=== PATIENT | female | born 1945 | race Caucasian/White ===

== ENCOUNTER 2021-03-10 16:16 | Observation (INO) ==
[2021-03-10] MEDS ORDERED: ACETAMINOPHEN 325 MG TABLET PO PRN (16:19)
[2021-03-10] MEDS: SODIUM CHLORIDE 0.9% 1,000 ML IV SCH (20:18)
[2021-03-10] MEDS: ONDANSETRON 4 MG/2 ML VIAL IV PRN (20:28)
[2021-03-10] MEDS: ENOXAPARIN 30 MG/0.3 ML SYRINGE SUBCUT SCH (21:50)
[2021-03-10] MEDS: DOCUSATE SODIUM 100 MG CAPSULE PO SCH (21:50)
[2021-03-10] MEDS ORDERED: hydrALAZINE 20 MG/1 ML VIAL IM PRN (22:20)
[2021-03-10] MEDS ORDERED: NITROGLYCERIN SL 0.4 MG TABLET SL PRN (22:21)
[2021-03-10] MEDS ORDERED: NITROGLYCERIN 2% OINT 1 INCH/GM PACK TOP ONE (22:21)
[2021-03-10] MEDS: ZALEPLON 5 MG CAPSULE PO SCH (22:38)
[2021-03-10] MEDS ORDERED: hydrALAZINE 20 MG/1 ML VIAL IV PRN (22:40)
[2021-03-11] MEDS: SODIUM CHLORIDE 0.9% 1,000 ML IV SCH ×4 (00:34→20:16)
[2021-03-11 07:14] LABS: Basophils % 0.9 % (0.0-0.8); Eosinophils # 0.2 10*3/uL (0.0-0.87); Eosinophils % 4.6 % (0.00-10.9); Hematocrit 31.2 VOL% (35.7-47.0); Hemoglobin 10.4 GM/DL (12.0-16.0); Immature Granulocytes % 0.4 %; Immature Granulocytes Absolute 0.02 #; Lymphocytes # 1.3 10*3/uL (1.4-4.0); Lymphocytes % 27.8 % (21.3-54.2); Mean Corpuscular HGB Conc 33.3 GM/DL (32-36); Mean Platelet Volume 10.4 FL (9.6-12.0); Monocytes % 16.9 % (1.7-12.7); Neutrophils % 49.4 % (38.7-73.9); Platelet Count 200 T/CUMM (130-400); Red Blood Count 3.76 MC/CUMM (3.8-5.5); Red Cell Distribution Width 13.4 % (9.3-17.3); White Blood Count 4.6 T/CUMM (4-12)
[2021-03-11 07:39] LABS: Eosinophils 2 % (0-10); Hypochromasia 1+; Lymphocytes 27 % (20-55); Microcytosis 1+; Platelet Estimate Adequate; Segmented Neutrophils 59 % (50-85); Total Cells Counted 100
[2021-03-11 07:58] LABS: Calcium 8.1 MG/DL (8.5-10.1); Osmolality,Calculated 276.4 MOS/KG (273-304); Potassium 3.6 MMOL/L (3.5-5.1)
[2021-03-11] MEDS: DOCUSATE SODIUM 100 MG CAPSULE PO SCH ×2 (11:44→21:18)
[2021-03-11] MEDS ORDERED: CYCLOBENZAPRINE 10 MG TABLET PO PRN (13:26)
[2021-03-11] MEDS: GABAPENTIN 300 MG CAPSULE PO SCH ×2 (14:08→21:16)
[2021-03-11] MEDS: ASPIRIN EC 81 MG TABLET PO SCH (14:08)
[2021-03-11 15:26] LABS: Bilirubin,Urine Negative (Negative); Blood, Urine Negative (Negative); Glucose,Urine (UA) 50 mg/dL (Negative); Ketones,Urine Negative (Negative); Nitrite,Urine Negative (Negative); Protein,Urine Negative; RBC,Urine 2 /HPF (0-4); Squamous Epithelial Cell,Urine Occasional /HPF (0-10); Urine Appearance CLEAR (Clear); Urine Color Straw (Yellow); Urine Specific Gravity 1.008 (1.001-1.035); Urine Urobilinogen < 2.0 EU/DL (0.2-1.0)
[2021-03-11] MEDS: PANTOPRAZOLE 40 MG TABLET PO SCH (21:15)
[2021-03-11] MEDS: ZALEPLON 5 MG CAPSULE PO SCH ×2 (21:16→21:19)
[2021-03-11] MEDS: ENOXAPARIN 30 MG/0.3 ML SYRINGE SUBCUT SCH (21:17)
[2021-03-12] MEDS: SODIUM CHLORIDE 0.9% 1,000 ML IV SCH ×4 (00:17→15:12)
[2021-03-12 09:09] LABS: Basophils % 0.8 % (0.0-0.8); Eosinophils # 0.2 10*3/uL (0.0-0.87); Eosinophils % 4.4 % (0.00-10.9); Hematocrit 32.8 VOL% (35.7-47.0); Hemoglobin 10.6 GM/DL (12.0-16.0); Immature Granulocytes % 0.2 %; Immature Granulocytes Absolute 0.01 #; Lymphocytes # 1.2 10*3/uL (1.4-4.0); Lymphocytes % 25.1 % (21.3-54.2); Mean Corpuscular HGB Conc 32.3 GM/DL (32-36); Mean Platelet Volume 9.9 FL (9.6-12.0); Monocytes % 17.3 % (1.7-12.7); Neutrophils % 52.2 % (38.7-73.9); Platelet Count 205 T/CUMM (130-400); Red Blood Count 3.86 MC/CUMM (3.8-5.5); Red Cell Distribution Width 13.8 % (9.3-17.3); White Blood Count 4.8 T/CUMM (4-12)
[2021-03-12] MEDS: ESCITALOPRAM 10 MG TABLET PO SCH (09:26)
[2021-03-12] MEDS: PANTOPRAZOLE 40 MG TABLET PO SCH ×2 (09:26→21:33)
[2021-03-12] MEDS: DOCUSATE SODIUM 100 MG CAPSULE PO SCH ×2 (09:26→21:34)
[2021-03-12] MEDS: LEVOTHYROXINE 112 MCG TABLET PO SCH (09:26)
[2021-03-12] MEDS: GABAPENTIN 300 MG CAPSULE PO SCH ×3 (09:26→21:33)
[2021-03-12] MEDS: ASPIRIN EC 81 MG TABLET PO SCH (09:26)
[2021-03-12] MEDS: ROSUVASTATIN 10 MG TABLET PO SCH (09:26)
[2021-03-12 09:31] LABS: Eosinophils 5 % (0-10); Hypochromasia 1+; Lymphocytes 31 % (20-55); Microcytosis 1+; Platelet Estimate Adequate; Segmented Neutrophils 51 % (50-85); Total Cells Counted 100
[2021-03-12 09:33] LABS: Calcium 8.4 MG/DL (8.5-10.1); Osmolality,Calculated 276.1 MOS/KG (273-304); Potassium 4.2 MMOL/L (3.5-5.1)
[2021-03-12] MEDS ORDERED: hydrOXYzine HCL 25 MG TABLET PO PRN (15:23)
[2021-03-12] MEDS: ONDANSETRON 4 MG/2 ML VIAL IV PRN (16:43)
[2021-03-12] MEDS: ENOXAPARIN 30 MG/0.3 ML SYRINGE SUBCUT SCH (21:34)
[2021-03-12] MEDS: ZALEPLON 5 MG CAPSULE PO SCH (21:34)
[2021-03-13 05:41] LABS: Basophils % 0.7 % (0.0-0.8); Eosinophils # 0.2 10*3/uL (0.0-0.87); Eosinophils % 4.6 % (0.00-10.9); Hematocrit 32.1 VOL% (35.7-47.0); Hemoglobin 10.2 GM/DL (12.0-16.0); Immature Granulocytes % 0.2 %; Immature Granulocytes Absolute 0.01 #; Lymphocytes # 1.4 10*3/uL (1.4-4.0); Lymphocytes % 31.6 % (21.3-54.2); Mean Corpuscular HGB Conc 31.8 GM/DL (32-36); Mean Corpuscular Volume 85.6 FL (87-102); Mean Platelet Volume 10.6 FL (9.6-12.0); Monocytes % 16.2 % (1.7-12.7); Neutrophils % 46.7 % (38.7-73.9); Platelet Count 195 T/CUMM (130-400); Red Blood Count 3.75 MC/CUMM (3.8-5.5); Red Cell Distribution Width 13.7 % (9.3-17.3); White Blood Count 4.5 T/CUMM (4-12)
[2021-03-13 05:50] LABS: Calcium 8.5 MG/DL (8.5-10.1); Osmolality,Calculated 280.4 MOS/KG (273-304); Potassium 3.8 MMOL/L (3.5-5.1)
[2021-03-13 06:28] LABS: Atypical Lymphocytes Few; Eosinophils 3 % (0-10); Hypochromasia 1+; Lymphocytes 26 % (20-55); Microcytosis 1+; Segmented Neutrophils 58 % (50-85); Total Cells Counted 100
[2021-03-13 06:29] LABS: Platelet Estimate Adequate
[2021-03-13] MEDS: ZALEPLON 5 MG CAPSULE PO SCH (07:02)
[2021-03-13] MEDS: PANTOPRAZOLE 40 MG TABLET PO SCH (08:59)
[2021-03-13] MEDS: ROSUVASTATIN 10 MG TABLET PO SCH (08:59)
[2021-03-13] MEDS: ESCITALOPRAM 10 MG TABLET PO SCH (08:59)
[2021-03-13] MEDS: GABAPENTIN 300 MG CAPSULE PO SCH ×2 (08:59→14:47)
[2021-03-13] MEDS: DOCUSATE SODIUM 100 MG CAPSULE PO SCH (08:59)
[2021-03-13] MEDS: LEVOTHYROXINE 112 MCG TABLET PO SCH (08:59)
[2021-03-13] MEDS: SODIUM CHLORIDE 0.9% 1,000 ML IV SCH (09:00)
[2021-03-13] MEDS: ASPIRIN EC 81 MG TABLET PO SCH (09:00)
[2021-03-13 12:03] VITALS: BP 167/79
== END 2021-03-13 16:09 | disposition home or self-care (01) ==
LOC: N.TELEN
PROVIDERS: ADMIT Internal Medicine; ATTEND Internal Medicine